=== PATIENT | female | born 1995 | race Caucasian/White ===

== ENCOUNTER → 2018-11-24 | Emergency (ER) | payer MEDICAID ==
[~2018-11-24] MED LIST: FAMOTIDINE 20 MG TAB PO ONE; diphenhydrAMINE 25 MG CAP PO ONE; predniSONE 20 MG TAB PO ONE
--- NOTE | 2018-11-24 23:52 | EDPHY ---
H & P Stated Complaint: Pt. 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 She explains that she went to a chain restaurant and had steak, broccoli potatoes and by the time she was finishing a male sore developing crampy abdominal discomfort followed by the onset of watery diarrhea and the hives. She has not had this happen before after eating. She did also take ibuprofen for a mild frontal headache similar to prior headaches prior to the medial and she reports that her headache has resolved. She has never had any issues with ibuprofen in the past in terms of any allergic symptoms. ROS: Constitutional: No fevers HEENT: No coryza. No throat pain or feeling of throat swelling. No mouth or other facial swelling. Eyes: Patient has dilated right more than left pupil from visiting the tower operator earlier today having dilated exam. Neuro: She attributes her headache to her pupillary dilatation explain is hard for her to focus her eyes and she feels she has been straining because of this causing a mild headache. The headache again has resolved after ibuprofen prior to arrival Pulmonary: No wheezing or shortness of breath Cardiovascular: No lightheadedness GI: No vomiting. No bloody stools. Currently no abdominal pain. 10 point review of symptoms is performed and otherwise negative with exception of pertinent positives and negatives listed in HPI and ROS Source: Patient Exam Limitations: No limitations - Personal History LMP (Females 10-55): 15-21 Days Ago Tetanus Vaccine Date: WITHIN 10 YRS - Medical/Surgical History Hx Asthma: No Hx Chronic Respiratory Disease: No Hx Diabetes: No Hx Cardiac Disease: No Hx Renal Disease: No Hx Cirrhosis: No Hx Alcoholism: No Hx HIV/AIDS: No Hx Splenectomy or Spleen Trauma: No Other PMH: Med hx-none. Surg-none - Social History Smoking Status: Never smoked Alcohol Use: Occasionally Drug Use: None Additional Social History: with a 16 month female. She is engaged. She is accompanied tonight by her mother. - Physical Exam Exam: General Appearance: Alert, no distress. Eyes: Pupils equal and round no pallor or injection. ENT, Mouth: Mucous membranes moist. No angioedema. No dysphonia. No drooling or stridor. Respiratory: There are no retractions, lungs are clear to auscultation. No wheezing. Cardiovascular: Regular rate and rhythm. Gastrointestinal: Slightly hyperactive bowel sounds. Abdomen is soft and nontender, no masses, bowel sounds normal. Neurological: GCS 15 Skin: She has diffuse erythematous papules blanches with pressure and confluent erythema over her belly blanches easily with pressure consistent with urticaria. No petechia or purpura. Musculoskeletal: Neck is supple nontender. Extremities are symmetrical, full range of motion. Psychiatric: Patient is oriented X 3, there is no agitation. DIFFERENTIAL DIAGNOSIS: After history and physical exam differential diagnosis was considered for food allergy, NSAID allergy, other general allergic reaction. Constitutional: Initial Vital Signs Temperature (C) 36.8 C 11/24/18 22:59 Heart Rate 97 11/24/18 22:59 Respiratory Rate 16 11/24/18 22:59 Blood Pressure 128/74 H 11/24/18 22:59 O2 Sat (%) 100 11/24/18 22:59 O2 Delivery Mode Room Air Allergies/Adverse Reactions: Penicillins Allergy (Severe, Verified 11/24/18 22:58) Hives amoxicillin [Amoxicillin] Allergy (Verified 11/24/18 22:58) Home Medications: Medication Instructions Recorded predniSONE 40 mg PO DAILY #10 tab 11/24/18 Medical Decision Making ED Course/Re-evaluation: Oral Benadryl, Pepcid and prednisone with improvement Discussion: Findings are most consistent with food allergy. I counseled patient regarding this. She does not have findings that suggest anaphylaxis or other complicating factors. Will plan to treat her with combination of Pepcid, antihistamines and prednisone. She understands need to return to the emergency department should she develop any worsening despite treatment plan - Data Points Medications Given: Discontinued Medications Diphenhydramine HCl (Benadryl) 50 mg PO EDNOW ONE Stop: 11/24/18 23:50 Last Admin: 11/25/18 00:00 Dose: 50 mg Famotidine (Pepcid) 40 mg PO EDNOW ONE Stop: 11/24/18 23:50 Last Admin: 11/25/18 00:01 Dose: 40 mg Prednisone (Prednisone) 40 mg PO EDNOW ONE Stop: 11/24/18 23:51 Last Admin: 11/25/18 00:00 Dose: 40 mg Departure - Departure Disposition: Home, Routine, Self-Care Clinical Impression: Food allergy, Urticaria Condition: Good Instructions: Prednisone (By mouth), Urticaria (ED) Additional Instructions: Diagnosis: 1. Food allergy to. Urticaria Plan: Benadryl or antihistamine of your choice Pepcid 40 mg a day daily for the next 5-7 days Prednisone 40 mg a day. Next dose in the morning after breakfast and subsequent doses in the morning after breakfast. Return for any significant worsening despite the treatment plan. Prescriptions: predniSONE 40 mg PO DAILY #10 tab
[2018-11-25 00:17] VITALS: BP 102/73
== END | disposition home or self-care (01) ==
LOC: CED 22:53
DX: T78.40XA Allergy, unspecified, initial encounter (principal); L50.9 Urticaria, unspecified
CPT/HCPCS: 99283-ER; J7512